=== PATIENT | female | born 1985 | race African-American/Black ===

== ENCOUNTER 2019-10-10 21:48 | Emergency (ER) | payer SELFPAY ==
[~2019-10-10] VITALS: Ht 165.1 cm; Wt 64.8 kg
--- NOTE | 2019-10-10 22:12 | NUR ---
PT REPORTS STOPPED USING HEROIN ABOUT TWO DAYS AGO, C/O "PAIN ALL OVER."
--- NOTE | 2019-10-10 22:15 | NUR ---
PT REPORTS DOES NOT TAKE ANY DAILY PRESCRIPTION MEDICATIONS.
[2019-10-10] MEDS ORDERED: ONDANSETRON ODT 4 MG PO ONE (22:30)
[2019-10-10] MEDS ORDERED: KETOROLAC 30 MG/1 ML IM ONE (22:30)
[2019-10-10 22:37] LABS: BASOPHILS # (AUTO) 0.03 x10^3/uL (0-0.1); BASOPHILS % (AUTO) 0 % (0-1); EOSINOPHILS # (AUTO) 0.03 x10^3/uL (0-0.4); EOSINOPHILS % (AUTO) 0 % (1-7); LYMPHOCYTES # (AUTO) 2.44 x10^3/uL (1-3.4); LYMPHOCYTES % (AUTO) 29 % (22-44); MD NO; MEAN CORPUSCULAR HEMOGLOBIN 30.8 pg (27.0-34.8); MEAN CORPUSCULAR HGB CONC 32.5 g/dL (32.4-35.8); MEAN CORPUSCULAR VOLUME 94.6 fL (80-100); MEAN PLATELET VOLUME 8.7 fL (7.4-10.4); MONOCYTES # (AUTO) 0.66 x10^3/uL (0.2-0.8); MONOCYTES % (AUTO) 8 % (2-9); NEUTROPHILS # (AUTO) 5.26 x10^3/uL (1.8-6.8); NEUTROPHILS % (AUTO) 62 % (42-75); PLATELET COUNT 286 x10^3/uL (130-400); RED BLOOD COUNT 3.85 x10^6/uL (3.82-5.3); RED CELL DISTRIBUTION WIDTH 14.4 % (9.6-15.2)
[2019-10-10 22:39] LABS: ALANINE AMINOTRANSFERASE 30 U/L (12-78); ALBUMIN 3.2 g/dL (3.4-5.0); ANION GAP 4 mmol/L (5-15); CALCIUM 8.8 mg/dL (8.5-10.1); CHLORIDE 110 mmol/L (98-107); CREATININE 0.69 mg/dL (0.55-1.02)
[2019-10-10 22:43] LABS: ALKALINE PHOSPHATASE 97 U/L (45-117); BILIRUBIN,TOTAL 0.5 mg/dL (0.2-1.0); TOTAL PROTEIN 6.8 g/dL (6.4-8.2)
[2019-10-10] MEDS ORDERED: KETOROLAC 60 MG/2 ML ONE (22:58)
[2019-10-10] MEDS ORDERED: ONDANSETRON ODT 4 MG ONE (22:58)
--- NOTE | 2019-10-10 23:07 | NUR ---
MEDICATED ORDERED. FAMILY MEMBERS AT BEDSIDE.
--- NOTE | 2019-10-10 23:29 | NUR ---
PT WAS HEARD YELLING PROFANITIES AND ARGUING W/ FAMILY MEMBER. FAMILY MEMBER WAS ASKED TO GO WAIT IN LOBBY. SAT DOWN AND TALKED TO PT. PT STATED FEELS FAMILY MEMBER IS TRYING TO "COMMIT" HER. PT WAS ASKED AGAIN, DENIED SI/HI, REVIEWED POC W/ PT FIRST DISCUSSED BY ERP R/T OUTPT FOLLOW UP CARE FOR REHAB AND ASSISTANCE W/ DRUG WD. PT THANKED RN FOR LISTENING AND AGREED TO POC.
[2019-10-10 23:58] VITALS: BP 148/98
--- NOTE | 2019-10-10 23:59 | NUR ---
REVIEWED DISCHARGE INSTRUCTIONS AND PRESCRIPTIONS W/ PT, VERBALIZED UNDERSTANDING TO INFORMATION PROVIDED INCLUDING FOLLOW UP CARE, RETURN PRECAUTIONS AND MEDICATIONS. PROVIDED W/ COMMUNITY RESOURCES LIST. PROVIDED W/ CRACKERS. PT CALM, THANKED RN FOR LISTENING TO CONCERNS AND PROVIDING CRACKERS. PT DENIED FURTHER QUESTIONS/CONCERNS. PT AMBULATED FROM ED.
== END 2019-10-11 00:02 | disposition home or self-care (01) ==
LOC: ED 23:22
DX: F15.10 Other stimulant abuse, uncomplicated (principal); F11.10 Opioid abuse, uncomplicated; F41.9 Anxiety disorder, unspecified; F17.200 Nicotine dependence, unspecified, uncomplicated; Z72.9 Problem related to lifestyle, unspecified
CPT/HCPCS: 36415; 80053; 84703; 85025; 96372; 99283; J1885; Q0162